=== PATIENT | male | born 1995 | race Caucasian/White ===

== ENCOUNTER 2018-07-02 13:45 | Emergency (ER) | payer BC ==
--- NOTE | 2018-07-02 15:10 | CR ---
[id number] RAD/RAD Forearm Left 2V EXAM: RAD Forearm Left 2V CLINICAL DATA: TRAUMA COMPARISON: NO PREVIOUS SIMILAR EXAM IS AVAILABLE. FINDINGS: No fracture or dislocation is seen. There is no radiopaque foreign body in the soft tissues. There is no air in the soft tissues. There is no cortical thickening or periosteal reaction either. IMPRESSION: NEGATIVE PLAIN FILM EXAM OF LEFT RADIUS AND ULNA. QUESTION OF AN UNUNITED MEDIAL EPICONDYLAR OSSIFICATION CENTER OF LEFT HUMERUS VERSUS TRAUMA. CORRELATION WITH THE OPPOSITE RIGHT ELBOW MAY BE HELPFUL. Rosalio Thomas MD 07/02/18 [id number] Thank you for allowing us to participate in the care of your patient.
--- NOTE | 2018-07-02 20:05 | EDM.PDOC ---
ED HPI GENERAL MEDICAL PROBLEM - General Chief Complaint: Upper Extremity Injury/Pain Stated Complaint: ARM Time Seen by Provider: 07/02/18 13:54 Source of Information: Reports: Patient History Limitations: Reports: No Limitations - History of Present Illness INITIAL COMMENTS - FREE TEXT/NARRATIVE: Pt. presents to ER with complaints of pain to his L elbow/proximal forearm. Pt. states that he has a history of falling while snowboarding on , injuring the extremity. No head injury. No injury other than what is isolated to the forearm/elbow. Onset: Today Onset Date: 07/02/18 Duration: Constant Location: Reports: Upper Extremity, Left Quality: Reports: Throbbing Severity: Moderate Left Elbow Pain Score (Numeric/FACES): 2 - Related Data Allergies Allergy/AdvReac Type Severity Reaction Status Date / Time No Known Allergies Allergy Verified 07/02/18 13:56 Home Meds: Home Meds Lisdexamfetamine Dimesylate [Vyvanse] 30 mg PO DAILY PRN 07/02/18 [History] Past Medical History Psychiatric History: Reports: ADHD Social & Family History - Tobacco Use Smoking Status *Q: Never Smoker Second Hand Smoke Exposure: No - Recreational Drug Use Recreational Drug Use: No Review of Systems - Review of Systems Review Of Systems: See Below Musculoskeletal: Reports: Arm Pain ED EXAM, GENERAL - Physical Exam Exam: See Below General Appearance: Alert, WD/WN, No Apparent Distress Extremities: Normal Inspection, Normal Capillary Refill, Limited Range of Motion Course - Vital Signs Last Recorded V/S: Last Vital Signs Temp 36.4 C 07/02/18 13:58 Pulse 96 07/02/18 13:58 Resp 16 07/02/18 13:58 BP 154/59 H 07/02/18 13:58 Pulse Ox 100 07/02/18 13:58 - Radiology Interpretation Free Text/Narrative:: no acute fracture or dislocation noted. Departure - Departure Time of Disposition: 15:00 Disposition: Home, Self-Care 01 Clinical Impression: Elbow sprain - Discharge Information Instructions: RICE for Routine Care of Injuries, [id number] Referrals: Jacques Michael MD [Primary Care Provider] - Forms: ED Department Discharge Additional Instructions: Ibuprofen 600mg every 6 hours. Ice the elbow for 20 min. every hour. If continuing to have discomfort, follow-up in clinic for further evaluation/ possible MRI. - Assessment/Plan Plan: Ibuprofen 600mg every 6 hours. Ice the elbow for 20 min. every hour. If continuing to have discomfort, follow-up in clinic for further evaluation/ possible MRI.
== END 2018-07-02 15:25 | disposition home or self-care (01) ==
LOC: VM.ED 13:45
DX: S53.402A Unspecified sprain of left elbow, initial encounter (principal); W19.XXXA Unspecified fall, initial encounter; Y93.23 Activity, snow (alpine) (downhill) skiing, snowboarding, sledding, tobogganing and snow tubing
CPT/HCPCS: 73090-LT; 99283